=== PATIENT | male | born 1955 | race Caucasian/White ===

== ENCOUNTER 2021-04-06 17:31 | Emergency (ER) | payer OTHER ==
--- NOTE | 2021-04-06 18:37 | EDM.PDOC ---
ED HPI GENERAL MEDICAL PROBLEM - General Stated Complaint: RT GREAT TOE Time Seen by Provider: 04/06/21 18:28 Source of Information: Reports: Patient History Limitations: Reports: No Limitations - History of Present Illness INITIAL COMMENTS - FREE TEXT/NARRATIVE: Patient presents with right great toe pain. He had a partial toenail removal 10 days ago. THis was done at the [facility]. He had a ingrown toenail for about a month. He has been soaking it in Epsom salts but was not placed on antibiotics. He had increased pain about 4-5 days ago, expressed a large amount of exudate out of it and it was a bit better. He has not had fevers, has had covid vaccinations. Has not called the [facility] about this but can tomorrow - Related Data Allergies Allergy/AdvReac Type Severity Reaction Status Date / Time nicotine Allergy Cough Verified 09/05/17 17:04 Home Meds: Home Meds Sulfamethoxazole/Trimethoprim [Bactrim Ds Tablet] 1 each PO BID #14 tablet 04/06/21 [Rx] Past Medical History Cardiovascular History: Reports: Arrhythmia, Heart Failure, SOB on Exertion Respiratory History: Reports: COPD (should be on oxygen but declines) Musculoskeletal History: Reports: Osteoarthritis Other Musculoskeletal History: wrist surgeries. Neurological History: Reports: Migraines Hematologic History: Reports: Polycythemia - Infectious Disease History Infectious Disease History: Reports: Shingles - Past Surgical History HEENT Surgical History: Reports: Laser Surgery GI Surgical History: Reports: Appendectomy, Hernia Repair/Other Other GI Surgeries/Procedures: Inguinal hernia-repaired 1982 Musculoskeletal Surgical History: Reports: Arthroscopic Knee Social & Family History - Family History Family Medical History: No Pertinent Family History - Tobacco Use Tobacco Use Status *Q: Current Every Day Tobacco User - Caffeine Use Caffeine Use: Reports: Coffee - Recreational Drug Use Recreational Drug Use: No Drug Use in Last 12 Months: No ED ROS GENERAL - Review of Systems Review Of Systems: See Below Constitutional: Reports: No Symptoms. Denies: Fever, Chills, Malaise, Weakness, Fatigue HEENT: Reports: No Symptoms. Denies: Hearing Loss, Rhinitis, Sinus Problem, Throat Swelling Respiratory: Reports: Shortness of Breath (chronicaly), Cough (chronically) Cardiovascular: Reports: Dyspnea on Exertion (chronically) Endocrine: Reports: No Symptoms GI/Abdominal: Reports: No Symptoms Musculoskeletal: Reports: Joint Pain (right great toe) Skin: Reports: Erythema (and drainage from the rigth great toe) Neurological: Reports: No Symptoms Psychiatric: Reports: No Symptoms ED EXAM, GENERAL - Physical Exam Exam: See Below Exam Limited By: No Limitations General Appearance: Alert, WD/WN, No Apparent Distress Eye Exam: Bilateral Eye: EOMI, Normal Inspection, PERRL Nose: Normal Inspection Throat/Mouth: Normal Inspection, Normal Lips Head: Atraumatic Neck: Normal Inspection Respiratory/Chest: Decreased Breath Sounds (bases), Crackles (bases), Wheezing Cardiovascular: Regular Rate, Rhythm, Tachycardia GI/Abdominal: Normal Bowel Sounds (Male) Exam: No Hernia Extremities: Pedal Edema (rigth greater than left, 2+ piting to the knees ( chronic per the patient)) Neurological: Alert, Oriented, CN II-XII Intact Skin Exam: Other (right great toe with limited motion due to pain , erythema, partial toenail removal. No expressible drainage. ) Course - Vital Signs Last Recorded V/S: Last Vital Signs Temp 36.6 C 04/06/21 18:19 Pulse 102 H 04/06/21 18:19 Resp 17 04/06/21 18:19 BP 119/75 04/06/21 18:19 Pulse Ox 91 L 04/06/21 18:19 - Orders/Labs/Meds Orders: Active Orders 24 hr Category Date Time Status Toes Great Toe Rt T5 [CR] Stat Exams 04/06/21 18:37 Taken DME for Discharge [COMM] Stat Oth 04/06/21 19:42 Ordered Labs: Laboratory Tests 04/06/21 04/06/21 04/06/21 Range/Units 18:54 18:54 18:54 WBC 10.8 H (4.0-10.0) x10^3/uL RBC 5.40 (4.5-6.0) x10^6/uL Hgb 15.5 (14.0-18.0) g/dL Hct 48.9 (40.0-52.0) % MCV 90.6 (78.0-93.0) fL MCH 28.7 (26.0-32.0) pg MCHC 31.7 L (32.0-36.0) g/dL RDW Coeff of Ariana 12.6 (10.0-15.0) % Plt Count 307 (130-400) x10^3/uL Immature Gran % (Auto) 0.20 (0.00-0.43) % Neut % (Auto) 63.8 (50.0-80.0) % Lymph % (Auto) 23.2 L (25.0-50.0) % [place] % (Auto) 9.3 (2.0-11.0) % Eos % (Auto) 2.6 (0.0-4.0) % Baso % (Auto) 0.9 (0.2-1.2) % Neut # (Auto) 6.9 (1.8-7.7) x10^3/uL Lymph # (Auto) 2.5 (1.0-4.8) x10^3/uL [place] # (Auto) 1.0 H (0.0-0.8) x10^3/uL Eos # (Auto) 0.3 (0.0-0.5) x10^3/uL Baso # (Auto) 0.1 (0.0-0.2) x10^3/uL Immature Gran # (Auto) 0.02 (0.00-0.07) x10^3/uL Sodium 140 (136-145) mmol/L Potassium 4.0 (3.5-5.1) mmol/L Chloride 101 (98-107) mmol/L Carbon Dioxide 34 H (21-32) mmol/L Anion Gap 9.0 (5-15) mmol/L BUN 10 (7-18) mg/dL Creatinine 1.0 (0.70-1.30) mg/dL Est Cr Clr Drug Dosing TNP Estimated GFR (MDRD) > 60 Glucose 121 H (70-99) mg/dL Lactic Acid 1.9 (0.4-2.0) mmol/L Uric Acid 6.5 (3.5-7.2) mg/dL Calcium 8.6 (8.5-10.1) mg/dL Corrected Calcium 9.2 (8.5-10.1) mg/dL Total Bilirubin 0.2 (0.2-1.0) mg/dL AST 10 L (15-37) U/L ALT 15 L (16-63) U/L Alkaline Phosphatase 72 (46-116) U/L C-Reactive Protein < 0.2 (<=0.9) mg/dL Total Protein 6.8 (6.4-8.2) g/dL Albumin 3.2 L (3.4-5.0) g/dL Globulin 3.6 Albumin/Globulin Ratio 0.89 Meds: Medications Discontinued Medications Generic Name Dose Route Start Last Admin Trade Name Moisesq PRN Reason Stop Dose Admin Hydrocodone Bitart/Acetaminophen 1 tab 04/06/21 18:38 04/06/21 19:00 Acetaminophen/Hydrocodone 325-5 Mg Tab PO 04/06/21 18:39 1 tab ONETIME ONE Administration Trimethoprim/Sulfamethoxazole 1 tab 04/06/21 19:41 Sulfamethoxazole/Trimethoprim 800-160 Mg Tab PO 04/06/21 19:42 ONETIME ONE - Radiology Interpretation Free Text/Narrative:: toe x-ray without any evidence of osteomyelitis, interpreted by radiologist - Re-Assessments/Exams Free Text/Narrative Re-Assessment/Exam: 04/06/21 19:10 will give a hydrocodone. check labs, x-ray will need antibiotics and close follow up 04/06/21 19:58 given bactrim po and a post op shoe. Declined IM injection and pain medication, Will get script for pain medication [facility] - Departure Time of Disposition: 19:43 Disposition: Home, Self-Care 01 Condition: Good Clinical Impression: Cellulitis of toe of right foot - Discharge Information *PRESCRIPTION DRUG MONITORING PROGRAM REVIEWED*: Not Applicable *COPY OF PRESCRIPTION DRUG MONITORING REPORT IN PATIENT OMER: Not Applicable Prescriptions: Sulfamethoxazole/Trimethoprim [Bactrim Ds Tablet] 1 each PO BID #14 tablet Instructions: Cellulitis, Adult, [id number] Referrals: Velasquez Gonzalez MD [Primary Care Provider] - Additional Instructions: continue to soak the toe twice daily. you were given a dose of antibiotics in the ED. start oral antibiotics tomorrow. [facility] and follow up tomorrow Sepsis Event Note (ED) - Focused Exam Vital Signs: Vital Signs Temp Pulse Resp BP Pulse Ox 04/06/21 18:19 36.6 C 102 H 17 119/75 91 L - My Orders Last 24 Hours: My Active Orders 04/06/21 18:37 Toes Great Toe Rt T5 [CR] Stat 04/06/21 19:42 DME for Discharge [COMM] Stat - Assessment/Plan Last 24 Hours: My Active Orders 04/06/21 18:37 Toes Great Toe Rt T5 [CR] Stat 04/06/21 19:42 DME for Discharge [COMM] Stat
[2021-04-06] MEDS ORDERED: Acetaminophen/HYDROcodone 325-5 MG Tab PO ONE (18:38)
[2021-04-06 19:26] LABS: CHLORIDE,CL 101 mmol/L (98-107); SODIUM,NA 140 mmol/L (136-145)
[2021-04-06] MEDS ORDERED: Sulfamethoxazole/Trimethoprim 800-160 MG Tab PO ONE (19:41)
[2021-04-06 19:53] VITALS: BP 119/75; PULSE 102
--- NOTE | 2021-04-07 08:54 | CR ---
[id number] RAD/RAD Toes Right EXAM: RAD Toes Right CLINICAL DATA: PAIN AND ERYTHEMA COMPARISON: No previous similar exam is available. FINDINGS: There is no air in the soft tissues There are no destructive changes There is no fracture or dislocation There are degenerative changes. IMPRESSION: NO PLAIN FILM EVIDENCE OF OSTEOMYELITIS Urban Alvarado MD 04/07/21 0853 Thank you for allowing us to participate in the care of your patient.
== END 2021-04-06 19:55 | disposition home or self-care (01) ==
LOC: VM.ED 17:31
DX: L03.031 Cellulitis of right toe (principal); J44.9 Chronic obstructive pulmonary disease, unspecified; I50.9 Heart failure, unspecified; Z88.1 Allergy status to other antibiotic agents; Z72.0 Tobacco use
CPT/HCPCS: 36415; 73660-T5; 80053; 83605; 84550; 85025; 86140; 99283; 99283-25; A9270-GY

== ENCOUNTER 2021-06-01 17:11 | Emergency (ER) | payer OTHER ==
[2021-06-01] MEDS ORDERED: Sodium Chloride 0.9% 10 ML Syringe FLUSH PRN (17:26)
[2021-06-01] MEDS ORDERED: GI Cocktail Oral Solution 30 ML PO ONE (17:27)
[2021-06-01] MEDS ORDERED: Morphine 2 MG/ML SYRINGE IVPUSH ONE (17:27)
[2021-06-01] MEDS ORDERED: Aspirin 81 MG Tab.Chew PO ONE (17:27)
[2021-06-01] MEDS ORDERED: Ondansetron 4 MG/2 ML SDV IVPUSH ONE (17:28)
--- NOTE | 2021-06-01 17:33 | EDM.PDOC ---
ED HPI GENERAL MEDICAL PROBLEM - General Stated Complaint: ER Time Seen by Provider: 06/01/21 17:25 Source of Information: Reports: Patient - History of Present Illness INITIAL COMMENTS - FREE TEXT/NARRATIVE: Abe is a 65 y/o male who presents to the ER with chest pain. He reports having midsternal/epigastric pain for the last 4 days. He thought it was indigestion and he was trying to ignore it. Today after he had went to the bar and had 1 beer and 3 shots of whiskey, he got home and sat down at his computer and he felt his heart palpate in his chest and he figured he better come to the ER. He rates the pain 3/10 and constant. Denies previous ME. He does have CHF and takes a fluid pill. Also long tie history of COPD and oxygen dependence, but he does not wear his oxygen when he leaves home and so he has had it off a good portion of this afternoon when he was at the bar. [facility] is his PCP. He has had the COVID vaccine. - Related Data Allergies Allergy/AdvReac Type Severity Reaction Status Date / Time nicotine Allergy Cough Verified 09/05/17 17:04 Home Meds: Home Meds Sulfamethoxazole/Trimethoprim [Bactrim Ds Tablet] 1 each PO BID #14 tablet 04/06/21 [Rx] Past Medical History Cardiovascular History: Reports: Arrhythmia, Heart Failure, SOB on Exertion Respiratory History: Reports: COPD (should be on oxygen but declines) Musculoskeletal History: Reports: Osteoarthritis Other Musculoskeletal History: wrist surgeries. Neurological History: Reports: Migraines Hematologic History: Reports: Polycythemia - Infectious Disease History Infectious Disease History: Reports: Shingles - Past Surgical History HEENT Surgical History: Reports: Laser Surgery GI Surgical History: Reports: Appendectomy, Hernia Repair/Other Other GI Surgeries/Procedures: Inguinal hernia-repaired 1982 Musculoskeletal Surgical History: Reports: Arthroscopic Knee Social & Family History - Family History Family Medical History: No Pertinent Family History - Caffeine Use Caffeine Use: Reports: Coffee Review of Systems - Review of Systems Review Of Systems: See Below Constitutional: Reports: No Symptoms Eyes: Reports: No Symptoms Ears: Reports: No Symptoms Nose: Reports: No Symptoms Mouth/Throat: Reports: No Symptoms Respiratory: Reports: Shortness of Breath, Cough Cardiovascular: Reports: Chest Pain, Edema, Palpitations GI/Abdominal: Reports: No Symptoms Genitourinary: Reports: No Symptoms Musculoskeletal: Reports: No Symptoms Skin: Reports: No Symptoms Neurological: Reports: No Symptoms Psychiatric: Reports: No Symptoms ED EXAM, GENERAL - Physical Exam Exam: See Below General Appearance: Alert, WD/WN, No Apparent Distress (Elderly male, cooperative and able to walk into the ER and get into a gown.) Ears: Hearing Grossly Normal Nose: Normal Inspection, Normal Mucosa Throat/Mouth: Normal Inspection, Normal Lips, Normal Voice Head: Atraumatic, Normocephalic Neck: Supple Respiratory/Chest: No Respiratory Distress, Decreased Breath Sounds, Crackles (scattered, but very diminished) Cardiovascular: Regular Rate, Rhythm, No Murmur, Other (3+ pitting edema to bi lateral lower legs) GI/Abdominal: Normal Bowel Sounds, Soft, Non-Tender (Male) Exam: Deferred Rectal (Males) Exam: Deferred Extremities: Pedal Edema (See above) Neurological: Alert, Oriented, CN II-XII Intact, Normal Cognition, Normal Gait, No Motor/Sensory Deficits Psychiatric: Normal Affect, Normal Mood Skin Exam: Warm, Dry, Intact, Normal Color, No Rash Lymphatic: No Adenopathy #1 Interpretation EKG Date: 06/01/21 Time: 17:22 Rhythm: NSR Rate (Beats/Min): 97 [place]: Normal P-Wave: Present QRS: Normal ST-T: Normal QT: Normal EKG Interpretation Comments: Sinus Rhythm Course - Vital Signs Text/Narrative:: 172 The patient was seen by the [employer]. Labs, EKG, and CXR ordered. ASA given. He was also given a GI cocktail to rule out GERD. Considered Nitro, but BP low, Morphine 1mg IVP ordered, but he declined. 1820 Reports pain 2/10. Labs reviewed. EKG=NSR and Troponin negative, doubt cardiac etiology. Feeling better since GI Cocktail. BNP 142. ETOH=48, Lactic Acid=2.6, suspect ETOH related due to negative CBC and no febrile. 184 Patient feeling better now. Will discharge to home. [facility]. He was given written instructions and left the ER in stable condition. - Orders/Labs/Meds Orders: Active Orders 24 hr Category Date Time Status EKG Documentation Completion [RC] STAT Care 06/01/21 17:26 Active REFLEX LACTIC ACID YES OR NO [CHEM] Routine Lab 06/01/21 18:17 Received Sodium Chloride 0.9% [Saline Flush] Med 06/01/21 17:26 Active 10 ml FLUSH ASDIRECTED PRN Saline Lock Insert [OM.PC] Stat Oth 06/01/21 17:26 Ordered Medication Orders Sodium Chloride (Sodium Chloride 0.9% 10 Ml Syringe) 10 ml FLUSH ASDIRECTED PRN PRN Reason: Keep Vein Open Labs: Laboratory Tests 06/01/21 06/01/21 06/01/21 Range/Units 17:30 17:30 17:30 WBC 10.0 (4.0-10.0) x10^3/uL RBC 6.17 H (4.5-6.0) x10^6/uL Hgb 16.7 (14.0-18.0) g/dL Hct 52.2 H (40.0-52.0) % MCV 84.6 D (78.0-93.0) fL MCH 27.1 (26.0-32.0) pg MCHC 32.0 (32.0-36.0) g/dL RDW Coeff of Ariana 14.6 (10.0-15.0) % Plt Count 275 (130-400) x10^3/uL Immature Gran % (Auto) 0.10 (0.00-0.43) % Neut % (Auto) 61.7 (50.0-80.0) % Lymph % (Auto) 23.9 L (25.0-50.0) % [place] % (Auto) 11.0 (2.0-11.0) % Eos % (Auto) 2.5 (0.0-4.0) % Baso % (Auto) 0.8 (0.2-1.2) % Neut # (Auto) 6.1 (1.8-7.7) x10^3/uL Lymph # (Auto) 2.4 (1.0-4.8) x10^3/uL [place] # (Auto) 1.1 H (0.0-0.8) x10^3/uL Eos # (Auto) 0.3 (0.0-0.5) x10^3/uL Baso # (Auto) 0.1 (0.0-0.2) x10^3/uL Immature Gran # (Auto) 0.01 (0.00-0.07) x10^3/uL PT 10.7 (9.9-12.5) SEC INR 1.0 L (2.0-3.5) APTT 26.1 (25.6-32.8) SEC POC ABG pH (7.35-7.45) pH POC ABG pCO2 (35-48) mmHg POC ABG pO2 (83-108) mmHg POC ABG HCO3 (21-28) mmol/L POC ABG Total CO2 (22-29) mmol/L POC ABG O2 Sat (94-98) % POC ABG Base Excess ((-2)-3) mmol/L POC FiO2 Sodium 141 (136-145) mmol/L Potassium 3.8 (3.5-5.1) mmol/L Chloride 101 (98-107) mmol/L Carbon Dioxide 33 H (21-32) mmol/L Anion Gap 10.8 (5-15) mmol/L BUN 13 (7-18) mg/dL Creatinine 0.9 (0.70-1.30) mg/dL Est Cr Clr Drug Dosing TNP Estimated GFR (MDRD) > 60 Glucose 124 H (70-99) mg/dL Lactic Acid (0.4-2.0) mmol/L Calcium 8.6 (8.5-10.1) mg/dL Corrected Calcium 9.2 (8.5-10.1) mg/dL Magnesium 1.8 (1.8-2.4) mg/dL Total Bilirubin 0.3 (0.2-1.0) mg/dL AST 10 L (15-37) U/L ALT 19 (16-63) U/L Alkaline Phosphatase 68 (46-116) U/L Troponin I High Sens 29 (<=76) ng/L NT-Pro-B Natriuret Pep 142 H (<=125) pg/mL Total Protein 6.7 (6.4-8.2) g/dL Albumin 3.3 L (3.4-5.0) g/dL Globulin 3.4 Albumin/Globulin Ratio 0.97 Amylase 21 L (25-115) U/L Lipase 79 (73-393) U/L Urine Color (YELLOW) Urine Appearance (CLEAR) Urine pH (5.0-8.0) Ur Specific [place] Urine Protein (NEGATIVE) mg/dL Urine Glucose (UA) (NEGATIVE) mg/dL Urine Ketones (NEGATIVE) mg/dL Urine Occult Blood (NEGATIVE) Urine Nitrite (NEGATIVE) Urine Bilirubin (NEGATIVE) Urine Urobilinogen (0.2) EU/dL Ur Leukocyte Esterase (NEGATIVE) Ethyl Alcohol 48 H (0-3) mg/dL SARS CoV-2 RNA Rapid ZI (NEGATIVE) 06/01/21 06/01/21 06/01/21 Range/Units 17:30 17:58 18:15 WBC (4.0-10.0) x10^3/uL RBC (4.5-6.0) x10^6/uL Hgb (14.0-18.0) g/dL Hct (40.0-52.0) % MCV (78.0-93.0) fL MCH (26.0-32.0) pg MCHC (32.0-36.0) g/dL RDW Coeff of Ariana (10.0-15.0) % Plt Count (130-400) x10^3/uL Immature Gran % (Auto) (0.00-0.43) % Neut % (Auto) (50.0-80.0) % Lymph % (Auto) (25.0-50.0) % [place] % (Auto) (2.0-11.0) % Eos % (Auto) (0.0-4.0) % Baso % (Auto) (0.2-1.2) % Neut # (Auto) (1.8-7.7) x10^3/uL Lymph # (Auto) (1.0-4.8) x10^3/uL [place] # (Auto) (0.0-0.8) x10^3/uL Eos # (Auto) (0.0-0.5) x10^3/uL Baso # (Auto) (0.0-0.2) x10^3/uL Immature Gran # (Auto) (0.00-0.07) x10^3/uL PT (9.9-12.5) SEC INR (2.0-3.5) APTT (25.6-32.8) SEC POC ABG pH 7.37 (7.35-7.45) pH POC ABG pCO2 50 H (35-48) mmHg POC ABG pO2 71 L (83-108) mmHg POC ABG HCO3 29.3 H (21-28) mmol/L POC ABG Total CO2 29.6 H (22-29) mmol/L POC ABG O2 Sat 93.3 L (94-98) % POC ABG Base Excess 4 H ((-2)-3) mmol/L POC FiO2 28 Sodium (136-145) mmol/L Potassium (3.5-5.1) mmol/L Chloride (98-107) mmol/L Carbon Dioxide (21-32) mmol/L Anion Gap (5-15) mmol/L BUN (7-18) mg/dL Creatinine (0.70-1.30) mg/dL Est Cr Clr Drug Dosing Estimated GFR (MDRD) Glucose (70-99) mg/dL Lactic Acid 2.6 H* (0.4-2.0) mmol/L Calcium (8.5-10.1) mg/dL Corrected Calcium (8.5-10.1) mg/dL Magnesium (1.8-2.4) mg/dL Total Bilirubin (0.2-1.0) mg/dL AST (15-37) U/L ALT (16-63) U/L Alkaline Phosphatase (46-116) U/L Troponin I High Sens (<=76) ng/L NT-Pro-B Natriuret Pep (<=125) pg/mL Total Protein (6.4-8.2) g/dL Albumin (3.4-5.0) g/dL Globulin Albumin/Globulin Ratio Amylase (25-115) U/L Lipase (73-393) U/L Urine Color (YELLOW) Urine Appearance (CLEAR) Urine pH (5.0-8.0) Ur Specific [place] Urine Protein (NEGATIVE) mg/dL Urine Glucose (UA) (NEGATIVE) mg/dL Urine Ketones (NEGATIVE) mg/dL Urine Occult Blood (NEGATIVE) Urine Nitrite (NEGATIVE) Urine Bilirubin (NEGATIVE) Urine Urobilinogen (0.2) EU/dL Ur Leukocyte Esterase (NEGATIVE) Ethyl Alcohol (0-3) mg/dL SARS CoV-2 RNA Rapid ZI Negative (NEGATIVE) 06/01/21 Range/Units 18:23 WBC (4.0-10.0) x10^3/uL RBC (4.5-6.0) x10^6/uL Hgb (14.0-18.0) g/dL Hct (40.0-52.0) % MCV (78.0-93.0) fL MCH (26.0-32.0) pg MCHC (32.0-36.0) g/dL RDW Coeff of Ariana (10.0-15.0) % Plt Count (130-400) x10^3/uL Immature Gran % (Auto) (0.00-0.43) % Neut % (Auto) (50.0-80.0) % Lymph % (Auto) (25.0-50.0) % [place] % (Auto) (2.0-11.0) % Eos % (Auto) (0.0-4.0) % Baso % (Auto) (0.2-1.2) % Neut # (Auto) (1.8-7.7) x10^3/uL Lymph # (Auto) (1.0-4.8) x10^3/uL [place] # (Auto) (0.0-0.8) x10^3/uL Eos # (Auto) (0.0-0.5) x10^3/uL Baso # (Auto) (0.0-0.2) x10^3/uL Immature Gran # (Auto) (0.00-0.07) x10^3/uL PT (9.9-12.5) SEC INR (2.0-3.5) APTT (25.6-32.8) SEC POC ABG pH (7.35-7.45) pH POC ABG pCO2 (35-48) mmHg POC ABG pO2 (83-108) mmHg POC ABG HCO3 (21-28) mmol/L POC ABG Total CO2 (22-29) mmol/L POC ABG O2 Sat (94-98) % POC ABG Base Excess ((-2)-3) mmol/L POC FiO2 Sodium (136-145) mmol/L Potassium (3.5-5.1) mmol/L Chloride (98-107) mmol/L Carbon Dioxide (21-32) mmol/L Anion Gap (5-15) mmol/L BUN (7-18) mg/dL Creatinine (0.70-1.30) mg/dL Est Cr Clr Drug Dosing Estimated GFR (MDRD) Glucose (70-99) mg/dL Lactic Acid (0.4-2.0) mmol/L Calcium (8.5-10.1) mg/dL Corrected Calcium (8.5-10.1) mg/dL Magnesium (1.8-2.4) mg/dL Total Bilirubin (0.2-1.0) mg/dL AST (15-37) U/L ALT (16-63) U/L Alkaline Phosphatase (46-116) U/L Troponin I High Sens (<=76) ng/L NT-Pro-B Natriuret Pep (<=125) pg/mL Total Protein (6.4-8.2) g/dL Albumin (3.4-5.0) g/dL Globulin Albumin/Globulin Ratio Amylase (25-115) U/L Lipase (73-393) U/L Urine Color Yellow (YELLOW) Urine Appearance Clear (CLEAR) Urine pH 5.5 (5.0-8.0) Ur Specific [place] 1.010 Urine Protein Negative (NEGATIVE) mg/dL Urine Glucose (UA) Negative (NEGATIVE) mg/dL Urine Ketones Negative (NEGATIVE) mg/dL Urine Occult Blood Negative (NEGATIVE) Urine Nitrite Negative (NEGATIVE) Urine Bilirubin Negative (NEGATIVE) Urine Urobilinogen 0.2 (0.2) EU/dL Ur Leukocyte Esterase Negative (NEGATIVE) Ethyl Alcohol (0-3) mg/dL SARS CoV-2 RNA Rapid ZI (NEGATIVE) Meds: Medications Generic Name Dose Route Start Last Admin Trade Name Freq PRN Reason Stop Dose Admin Sodium Chloride 10 ml 06/01/21 17:26 Sodium Chloride 0.9% 10 Ml Syringe FLUSH ASDIRECTED PRN Keep Vein Open Discontinued Medications Generic Name Dose Route Start Last Admin Trade Name Freq PRN Reason Stop Dose Admin Al Hydroxide/Mg Hydroxide 30 ml 06/01/21 17:27 06/01/21 17:45 Gi Cocktail Oral Solution 30 Ml PO 06/01/21 17:28 30 ml ONETIME ONE Administration Aspirin 324 mg 06/01/21 17:27 06/01/21 17:44 Aspirin 81 Mg Tab.Chew PO 06/01/21 17:28 324 mg ONETIME ONE Administration Morphine Sulfate 1 mg 06/01/21 17:27 Morphine 2 Mg/Ml Syringe IVPUSH 06/01/21 17:28 ONETIME ONE Ondansetron HCl 4 mg 06/01/21 17:28 Ondansetron 4 Mg/2 Ml Sdv IVPUSH 06/01/21 17:29 ONETIME ONE - Radiology Interpretation Free Text/Narrative:: XR Chest 1V=negative (See final report) Departure - Departure Time of Disposition: 18:53 Disposition: Home, Self-Care 01 Condition: Good Clinical Impression: Alcohol use Chest pain Qualifiers: Chest pain type: unspecified Qualified Code(s): R07.9 - Chest pain, unspecified COPD (chronic obstructive pulmonary disease) Qualifiers: COPD type: unspecified COPD Qualified Code(s): J44.9 - Chronic obstructive pulmonary disease, unspecified - Discharge Information Instructions: Nonspecific Chest Pain, Adult Additional Instructions: -Resume meds -Wear your oxygen as directed -[facility] or any other concerns -Return to the ER as needed - Problem List & Annotations (1) Chest pain SNOMED Code(s): 85690407 Code(s): R07.9 - CHEST PAIN, UNSPECIFIED Status: Acute Current Visit: Yes Annotation/Comment:: Trponin negative. Better following GI Cocktail. EKG negative. Qualifiers: Chest pain type: unspecified Qualified Code(s): R07.9 - Chest pain, unspecified (2) Alcohol use SNOMED Code(s): 422894 Code(s): Z72.89 - OTHER PROBLEMS RELATED TO LIFESTYLE Status: Acute Current Visit: Yes Annotation/Comment:: ETOH=48, chornic user. Suspect Lactic Acid elevated from ETOH use. (3) COPD (chronic obstructive pulmonary disease) SNOMED Code(s): 06547036 Code(s): J44.9 - CHRONIC OBSTRUCTIVE PULMONARY DISEASE, UNSPECIFIED Status: Acute Current Visit: Yes Annotation/Comment:: Continue home oxygen Qualifiers: COPD type: unspecified COPD Qualified Code(s): J44.9 - Chronic obstructive pulmonary disease, unspecified - Problem List Review Problem List Initiated/Reviewed/Updated: Yes - My Orders Last 24 Hours: My Active Orders 06/01/21 17:26 EKG Documentation Completion [RC] STAT Sodium Chloride 0.9% [Saline Flush] 10 ml FLUSH ASDIRECTED PRN Saline Lock Insert [OM.PC] Stat 06/01/21 18:17 REFLEX LACTIC ACID YES OR NO [CHEM] Routine - Assessment/Plan Last 24 Hours: My Active Orders 06/01/21 17:26 EKG Documentation Completion [RC] STAT Sodium Chloride 0.9% [Saline Flush] 10 ml FLUSH ASDIRECTED PRN Saline Lock Insert [OM.PC] Stat 06/01/21 18:17 REFLEX LACTIC ACID YES OR NO [CHEM] Routine Plan: See above
[2021-06-01 18:05] LABS: PCO2 ARTERIAL,POC 50 mmHg (35-48)
[2021-06-01 18:13] LABS: PTT,PARTIAL THROMBOPLSTIN TIME 26.1 SEC (25.6-32.8)
[2021-06-01 18:18] LABS: CHLORIDE,CL 101 mmol/L (98-107); SODIUM,NA 141 mmol/L (136-145)
[2021-06-01 18:19] LABS: ANION GAP 10.8 mmol/L (5-15)
--- NOTE | 2021-06-01 18:40 | CR ---
[id number] RAD/RAD Chest PA or AP 1V EXAM: RAD Chest PA or AP 1V INDICATION: CHEST PAIN. HYPOXIA. COMPARISON: None. DISCUSSION: Cardiomediastinal silhouette is normal in size and contour. No infiltrate, effusion, pneumothorax, or edema. Left basilar subsegmental atelectasis and/or scarring. IMPRESSION: No acute cardiopulmonary abnormality. Sekou Pollock DO 06/01/21 6231 Thank you for allowing us to participate in the care of your patient.
[2021-06-01 21:17] VITALS: BP 117/69; PULSE 93
== END 2021-06-01 19:15 | disposition home or self-care (01) ==
LOC: VM.ED 17:11
DX: J44.9 Chronic obstructive pulmonary disease, unspecified (principal); F10.10 Alcohol abuse, uncomplicated; Z88.8 Allergy status to other drugs, medicaments and biological substances; Z20.822 Contact with and (suspected) exposure to COVID-19
CPT/HCPCS: 36600; 71045; 80053; 80307; 81003; 82150; 82803; 83605; 83690; 83735; 83880; 84484; 85025; 85610; 85730; 93005; 93010; 99284; 99285-25; A9270-GY; U0002

== ENCOUNTER 2021-07-14 18:38 | Emergency (ER) | payer OTHER ==
[2021-07-14] MEDS ORDERED: Sodium Chloride 0.9% 10 ML Syringe FLUSH PRN ×2 (18:48→19:00)
[2021-07-14] MEDS ORDERED: Aspirin 81 MG Tab.Chew PO ONE (18:52)
--- NOTE | 2021-07-14 19:00 | EDM.PDOC ---
ED HPI GENERAL MEDICAL PROBLEM - General Stated Complaint: CHEST PAIN Time Seen by Provider: 07/14/21 18:40 Source of Information: Reports: Patient History Limitations: Reports: No Limitations - History of Present Illness INITIAL COMMENTS - FREE TEXT/NARRATIVE: Pt. presents to ER with complaints of chest pain for a week. He states that he came in tonight because it is not getting better. Pt. states that he has a history of CHF and COPD. He states that he has never had an NC. He smokes and is on O2 at home. On arrival to ER his O2 sat was 70% on room air. He states that he is on numerous medications but is unable to name them. [facility] He states that he has inhalers but usually forgets to take them. He states that he has been experiencing significant peripheral edema, but has been for months. He states that he is on a "water pill" but is not sure which one. Pt. states that he has a chronic cough, not worse than normal. He states that it is productive which is normal for him. He denies any fever or chills. No nausea, vomiting or diarrhea. He states that he has had the [employer] vaccine for covid as well as a booster. Medical record synopsis was obtained from [facility]. Pt. has a history secondary polycythemia for which he receives theraputic phlebotomy, COPD (on albuterol inhaler and Advair 250/50, and tiotropium 2.5mcg/act), CHF (for which he takes lasix 40mg QAM and metoprolol succinate 50mg once daily). Onset Date: 07/07/21 Location: Reports: Chest, Generalized Associated Symptoms: Reports: Chest Pain, Cough, cough w sputum, Shortness of Breath. Denies: Diaphoresis, Fever/Chills, Malaise, Nausea/Vomiting, Seizure, Syncope, Weakness Treatments [employer]: Reports: Breathing Treatments Middle Chest Pain Score (Numeric/FACES): 6 - Related Data Allergies Allergy/AdvReac Type Severity Reaction Status Date / Time nicotine Allergy Cough Verified 07/14/21 19:29 Home Meds: Home Meds . [Unable to Verify Home Med List] 06/01/21 [History] Past Medical History Cardiovascular History: Reports: Arrhythmia, Heart Failure, SOB on Exertion Respiratory History: Reports: COPD Musculoskeletal History: Reports: Osteoarthritis Other Musculoskeletal History: wrist surgeries. Neurological History: Reports: Migraines Hematologic History: Reports: Polycythemia - Infectious Disease History Infectious Disease History: Reports: Shingles - Past Surgical History HEENT Surgical History: Reports: Laser Surgery GI Surgical History: Reports: Appendectomy, Hernia Repair/Other Other GI Surgeries/Procedures: Inguinal hernia-repaired 1982 Musculoskeletal Surgical History: Reports: Arthroscopic Knee Social & Family History - Family History Family Medical History: No Pertinent Family History - Caffeine Use Caffeine Use: Reports: Coffee ED ROS GENERAL - Review of Systems Review Of Systems: See Below Constitutional: Reports: No Symptoms HEENT: Reports: No Symptoms Respiratory: Reports: Shortness of Breath, Cough Cardiovascular: Reports: Chest Pain, Dyspnea on Exertion, Edema Endocrine: Reports: No Symptoms GI/Abdominal: Reports: No Symptoms : Reports: No Symptoms Musculoskeletal: Reports: No Symptoms Skin: Reports: No Symptoms Neurological: Reports: No Symptoms Psychiatric: Reports: No Symptoms Hematologic/Lymphatic: Reports: No Symptoms Immunologic: Reports: No Symptoms ED EXAM, GENERAL - Physical Exam Exam: See Below Exam Limited By: No Limitations General Appearance: Alert, WD/WN Throat/Mouth: Normal Oropharynx, No Airway Compromise Head: Atraumatic, Normocephalic Respiratory/Chest: Decreased Breath Sounds, Wheezing Cardiovascular: Regular Rate, Rhythm, No JVD, Other (2-3+ edema) Peripheral Pulses: 4+: Radial (L) GI/Abdominal: Soft, Non-Tender, No Distention, No Mass (Male) Exam: Deferred Rectal (Males) Exam: Deferred Back Exam: Normal Inspection, Full Range of Motion Extremities: Normal Inspection, Normal Range of Motion, Non-Tender, Other (Rubor, edema to lower legs. Pt. states that this is a chronic problem for him.) Neurological: Alert, Oriented, CN II-XII Intact, Normal Cognition, Normal Reflexes, No Motor/Sensory Deficits Psychiatric: Normal Affect, Normal Mood Skin Exam: Warm, Dry, Intact, Normal Color, No Rash Lymphatic: No Adenopathy #1 Interpretation Rhythm: NSR QT: Prolonged Course - Vital Signs Last Recorded V/S: Last Vital Signs Temp 36.8 C 07/14/21 18:40 Pulse 102 H 07/14/21 18:40 Resp 34 H 07/14/21 18:40 BP 100/60 07/14/21 18:40 Pulse Ox 70 L 07/14/21 18:40 - Orders/Labs/Meds Orders: Active Orders 24 hr Category Date Time Status RT Aerosol Therapy [RC] ASDIRECTED Care 07/14/21 20:20 Active CULTURE BLOOD [BC] Stat Lab 07/14/21 19:00 Received CULTURE BLOOD [BC] Stat Lab 07/14/21 19:04 Received REFLEX LACTIC ACID YES OR NO [CHEM] Routine Lab 07/14/21 19:37 Received Azithromycin [Zithromax] 500 mg Med 07/14/21 20:26 Active Sodium Chloride 0.9% [Normal Saline AdvBag] 250 ml IV STAT Sodium Chloride 0.9% [Saline Flush] Med 07/14/21 18:48 Active 10 ml FLUSH ASDIRECTED PRN Sodium Chloride 0.9% [Saline Flush] Med 07/14/21 19:00 Active 10 ml FLUSH ASDIRECTED PRN Blood Culture x2 Reflex Set [OM.PC] Stat Oth 07/14/21 18:49 Ordered Peripheral IV Insertion Adult [OM.PC] Routine Oth 07/14/21 18:48 Ordered Peripheral IV Insertion Adult [OM.PC] Routine Oth 07/14/21 19:00 Ordered Medication Orders Azithromycin 500 mg/ Sodium (Chloride) 250 mls @ 250 mls/hr IV STAT ONE Stop: 07/14/21 21:25 Last Admin: 07/14/21 20:39 Dose: 250 mls/hr Documented by: BATACAR Sodium Chloride (Sodium Chloride 0.9% 10 Ml Syringe) 10 ml FLUSH ASDIRECTED PRN PRN Reason: Keep Vein Open Last Admin: 07/14/21 20:20 Dose: 10 ml Documented by: BATACAR Sodium Chloride (Sodium Chloride 0.9% 10 Ml Syringe) 10 ml FLUSH ASDIRECTED PRN PRN Reason: Keep Vein Open Labs: Laboratory Tests 07/14/21 07/14/21 07/14/21 Range/Units 19:00 19:00 19:00 WBC 10.3 H (4.0-10.0) x10^3/uL RBC 6.19 H (4.5-6.0) x10^6/uL Hgb 15.5 (14.0-18.0) g/dL Hct 51.9 (40.0-52.0) % MCV 83.8 (78.0-93.0) fL MCH 25.0 L (26.0-32.0) pg MCHC 29.9 L (32.0-36.0) g/dL RDW Coeff of Ariana 15.9 H (10.0-15.0) % Plt Count 258 (130-400) x10^3/uL Immature Gran % (Auto) 0.20 (0.00-0.43) % Neut % (Auto) 73.2 (50.0-80.0) % Lymph % (Auto) 14.6 L (25.0-50.0) % [place] % (Auto) 8.6 (2.0-11.0) % Eos % (Auto) 2.3 (0.0-4.0) % Baso % (Auto) 1.1 (0.2-1.2) % Neut # (Auto) 7.5 (1.8-7.7) x10^3/uL Lymph # (Auto) 1.5 (1.0-4.8) x10^3/uL [place] # (Auto) 0.9 H (0.0-0.8) x10^3/uL Eos # (Auto) 0.2 (0.0-0.5) x10^3/uL Baso # (Auto) 0.1 (0.0-0.2) x10^3/uL Immature Gran # (Auto) 0.02 (0.00-0.07) x10^3/uL PT 11.3 (9.9-12.5) SEC INR 1.0 L (2.0-3.5) APTT (25.6-32.8) SEC D-Dimer, Quantitative 0.47 (<=0.58) mg/LFEU POC ABG pH (7.35-7.45) pH POC ABG pCO2 (35-48) mmHg POC ABG pO2 (83-108) mmHg POC ABG HCO3 (21-28) mmol/L POC ABG Total CO2 (22-29) mmol/L POC ABG O2 Sat (94-98) % POC ABG Base Excess ((-2)-3) mmol/L POC FiO2 POC Blood Gas Comment Sodium 144 (136-145) mmol/L Potassium 4.0 (3.5-5.1) mmol/L Chloride 100 (98-107) mmol/L Carbon Dioxide 41 H (21-32) mmol/L Anion Gap 7.0 (5-15) mmol/L BUN 15 (7-18) mg/dL Creatinine 1.0 (0.70-1.30) mg/dL Est Cr Clr Drug Dosing TNP Estimated GFR (MDRD) > 60 Glucose 125 H (70-99) mg/dL Lactic Acid (0.4-2.0) mmol/L Calcium 8.5 (8.5-10.1) mg/dL Corrected Calcium 9.1 (8.5-10.1) mg/dL Phosphorus 4.6 (2.6-4.7) mg/dL Magnesium 2.0 (1.8-2.4) mg/dL Total Bilirubin 0.5 (0.2-1.0) mg/dL AST 21 (15-37) U/L ALT 31 (16-63) U/L Alkaline Phosphatase 67 (46-116) U/L Troponin I High Sens 21 (<=76) ng/L C-Reactive Protein < 0.2 (<=0.9) mg/dL NT-Pro-B Natriuret Pep 939 H (<=125) pg/mL Total Protein 7.1 (6.4-8.2) g/dL Albumin 3.2 L (3.4-5.0) g/dL Globulin 3.9 Albumin/Globulin Ratio 0.82 Ethyl Alcohol 6 H (0-3) mg/dL Influenza Type A RNA (NEGATIVE) RSV RNA (INAAT) (NEGATIVE) Influenza Type B RNA (NEGATIVE) SARS-CoV-2 RNA (ZI) (NEGATIVE) 07/14/21 07/14/21 07/14/21 Range/Units 19:00 19:00 19:10 WBC (4.0-10.0) x10^3/uL RBC (4.5-6.0) x10^6/uL Hgb (14.0-18.0) g/dL Hct (40.0-52.0) % MCV (78.0-93.0) fL MCH (26.0-32.0) pg MCHC (32.0-36.0) g/dL RDW Coeff of Ariana (10.0-15.0) % Plt Count (130-400) x10^3/uL Immature Gran % (Auto) (0.00-0.43) % Neut % (Auto) (50.0-80.0) % Lymph % (Auto) (25.0-50.0) % [place] % (Auto) (2.0-11.0) % Eos % (Auto) (0.0-4.0) % Baso % (Auto) (0.2-1.2) % Neut # (Auto) (1.8-7.7) x10^3/uL Lymph # (Auto) (1.0-4.8) x10^3/uL [place] # (Auto) (0.0-0.8) x10^3/uL Eos # (Auto) (0.0-0.5) x10^3/uL Baso # (Auto) (0.0-0.2) x10^3/uL Immature Gran # (Auto) (0.00-0.07) x10^3/uL PT (9.9-12.5) SEC INR (2.0-3.5) APTT 26.1 (25.6-32.8) SEC D-Dimer, Quantitative (<=0.58) mg/LFEU POC ABG pH (7.35-7.45) pH POC ABG pCO2 (35-48) mmHg POC ABG pO2 (83-108) mmHg POC ABG HCO3 (21-28) mmol/L POC ABG Total CO2 (22-29) mmol/L POC ABG O2 Sat (94-98) % POC ABG Base Excess ((-2)-3) mmol/L POC FiO2 POC Blood Gas Comment Sodium (136-145) mmol/L Potassium (3.5-5.1) mmol/L Chloride (98-107) mmol/L Carbon Dioxide (21-32) mmol/L Anion Gap (5-15) mmol/L BUN (7-18) mg/dL Creatinine (0.70-1.30) mg/dL Est Cr Clr Drug Dosing Estimated GFR (MDRD) Glucose (70-99) mg/dL Lactic Acid 2.6 H* (0.4-2.0) mmol/L Calcium (8.5-10.1) mg/dL Corrected Calcium (8.5-10.1) mg/dL Phosphorus (2.6-4.7) mg/dL Magnesium (1.8-2.4) mg/dL Total Bilirubin (0.2-1.0) mg/dL AST (15-37) U/L ALT (16-63) U/L Alkaline Phosphatase (46-116) U/L Troponin I High Sens (<=76) ng/L C-Reactive Protein (<=0.9) mg/dL NT-Pro-B Natriuret Pep (<=125) pg/mL Total Protein (6.4-8.2) g/dL Albumin (3.4-5.0) g/dL Globulin Albumin/Globulin Ratio Ethyl Alcohol (0-3) mg/dL Influenza Type A RNA Negative (NEGATIVE) RSV RNA (INAAT) Negative (NEGATIVE) Influenza Type B RNA Negative (NEGATIVE) SARS-CoV-2 RNA (ZI) Negative (NEGATIVE) 07/14/21 Range/Units 20:22 WBC (4.0-10.0) x10^3/uL RBC (4.5-6.0) x10^6/uL Hgb (14.0-18.0) g/dL Hct (40.0-52.0) % MCV (78.0-93.0) fL MCH (26.0-32.0) pg MCHC (32.0-36.0) g/dL RDW Coeff of Ariana (10.0-15.0) % Plt Count (130-400) x10^3/uL Immature Gran % (Auto) (0.00-0.43) % Neut % (Auto) (50.0-80.0) % Lymph % (Auto) (25.0-50.0) % [place] % (Auto) (2.0-11.0) % Eos % (Auto) (0.0-4.0) % Baso % (Auto) (0.2-1.2) % Neut # (Auto) (1.8-7.7) x10^3/uL Lymph # (Auto) (1.0-4.8) x10^3/uL [place] # (Auto) (0.0-0.8) x10^3/uL Eos # (Auto) (0.0-0.5) x10^3/uL Baso # (Auto) (0.0-0.2) x10^3/uL Immature Gran # (Auto) (0.00-0.07) x10^3/uL PT (9.9-12.5) SEC INR (2.0-3.5) APTT (25.6-32.8) SEC D-Dimer, Quantitative (<=0.58) mg/LFEU POC ABG pH 7.23 L* (7.35-7.45) pH POC ABG pCO2 106 H* (35-48) mmHg POC ABG pO2 73 L (83-108) mmHg POC ABG HCO3 43.8 H (21-28) mmol/L POC ABG Total CO2 44.9 H (22-29) mmol/L POC ABG O2 Sat 89.1 L (94-98) % POC ABG Base Excess 16 H ((-2)-3) mmol/L POC FiO2 28 POC Blood Gas Comment Called critical res Sodium (136-145) mmol/L Potassium (3.5-5.1) mmol/L Chloride (98-107) mmol/L Carbon Dioxide (21-32) mmol/L Anion Gap (5-15) mmol/L BUN (7-18) mg/dL Creatinine (0.70-1.30) mg/dL Est Cr Clr Drug Dosing Estimated GFR (MDRD) Glucose (70-99) mg/dL Lactic Acid (0.4-2.0) mmol/L Calcium (8.5-10.1) mg/dL Corrected Calcium (8.5-10.1) mg/dL Phosphorus (2.6-4.7) mg/dL Magnesium (1.8-2.4) mg/dL Total Bilirubin (0.2-1.0) mg/dL AST (15-37) U/L ALT (16-63) U/L Alkaline Phosphatase (46-116) U/L Troponin I High Sens (<=76) ng/L C-Reactive Protein (<=0.9) mg/dL NT-Pro-B Natriuret Pep (<=125) pg/mL Total Protein (6.4-8.2) g/dL Albumin (3.4-5.0) g/dL Globulin Albumin/Globulin Ratio Ethyl Alcohol (0-3) mg/dL Influenza Type A RNA (NEGATIVE) RSV RNA (INAAT) (NEGATIVE) Influenza Type B RNA (NEGATIVE) SARS-CoV-2 RNA (ZI) (NEGATIVE) Meds: Medications Generic Name Dose Route Start Last Admin Trade Name Freq PRN Reason Stop Dose Admin Azithromycin 500 mg/ Sodium 250 mls @ 250 mls/hr 07/14/21 20:26 07/14/21 20:39 Chloride IV 07/14/21 21:25 250 mls/hr STAT ONE Administration Sodium Chloride 10 ml 07/14/21 18:48 07/14/21 20:20 Sodium Chloride 0.9% 10 Ml Syringe FLUSH 10 ml ASDIRECTED PRN Administration Keep Vein Open Sodium Chloride 10 ml 07/14/21 19:00 Sodium Chloride 0.9% 10 Ml Syringe FLUSH ASDIRECTED PRN Keep Vein Open Discontinued Medications Generic Name Dose Route Start Last Admin Trade Name Freq PRN Reason Stop Dose Admin Albuterol/Ipratropium 3 ml 07/14/21 20:20 07/14/21 20:24 Albuterol/Ipratropium 3.0-0.5 Mg/3 Ml Neb Soln NEB 07/14/21 20:21 3 ml ONETIME ONE Administration Aspirin 324 mg 07/14/21 18:52 07/14/21 18:40 Aspirin 81 Mg Tab.Chew PO 07/14/21 18:53 324 mg ONETIME ONE Administration Ceftriaxone Sodium 2 gm 07/14/21 20:01 07/14/21 20:15 Ceftriaxone 2 Gm Vial IVPUSH 07/14/21 20:02 2 gm STAT ONE Administration Methylprednisolone Sodium Succinate 125 mg 07/14/21 20:00 07/14/21 20:15 Methylprednisolone Sodium Succinate 125 Mg/2 Ml Sdv IV 07/14/21 20:01 125 mg ONETIME ONE Administration - Radiology Interpretation Free Text/Narrative:: Hyperinflation/COPD, no obvious infiltrate, failure pattern. - Re-Assessments/Exams Free Text/Narrative Re-Assessment/Exam: Pt. O2 sat. was in the 75% range after walking into the ER. Lung sounds where wheezy. Pt. placed on O2 per NC at 3L/min and O2 sat increased to 93%. Pt. was given solu medrol 125mg IV and rocephin 2 gm IV. He was given a duo neb. He will also be covered with azithromycin. Departure - Departure Time of Disposition: 21:09 Disposition: DC/Tfer to [facility] 02 Clinical Impression: COPD (chronic obstructive pulmonary disease) Qualifiers: COPD type: unspecified COPD Qualified Code(s): J44.9 - Chronic obstructive pulmonary disease, unspecified - Discharge Information Referrals: Velasquez Gonzalez MD [Primary Care Provider] - Forms: ED Department Discharge, Interfacility Transfer EMTALA Sepsis Event Note (ED) - Focused Exam Vital Signs: Vital Signs Temp Pulse Resp BP Pulse Ox 07/14/21 18:40 36.8 C 102 H 34 H 100/60 70 L - Problem List Review Problem List Initiated/Reviewed/Updated: Yes - My Orders Last 24 Hours: My Active Orders 07/14/21 18:48 Sodium Chloride 0.9% [Saline Flush] 10 ml FLUSH ASDIRECTED PRN Peripheral IV Insertion Adult [OM.PC] Routine 07/14/21 18:49 Blood Culture x2 Reflex Set [OM.PC] Stat 07/14/21 19:00 CULTURE BLOOD [BC] Stat Sodium Chloride 0.9% [Saline Flush] 10 ml FLUSH ASDIRECTED PRN Peripheral IV Insertion Adult [OM.PC] Routine 07/14/21 19:04 CULTURE BLOOD [BC] Stat 07/14/21 19:37 REFLEX LACTIC ACID YES OR NO [CHEM] Routine 07/14/21 20:20 RT Aerosol Therapy [RC] ASDIRECTED 07/14/21 20:26 Azithromycin [Zithromax] 500 mg Sodium Chloride 0.9% [Normal Saline AdvBag] 250 ml IV STAT - Assessment/Plan Last 24 Hours: My Active Orders 07/14/21 18:48 Sodium Chloride 0.9% [Saline Flush] 10 ml FLUSH ASDIRECTED PRN Peripheral IV Insertion Adult [OM.PC] Routine 07/14/21 18:49 Blood Culture x2 Reflex Set [OM.PC] Stat 07/14/21 19:00 CULTURE BLOOD [BC] Stat Sodium Chloride 0.9% [Saline Flush] 10 ml FLUSH ASDIRECTED PRN Peripheral IV Insertion Adult [OM.PC] Routine 07/14/21 19:04 CULTURE BLOOD [BC] Stat 07/14/21 19:37 REFLEX LACTIC ACID YES OR NO [CHEM] Routine 07/14/21 20:20 RT Aerosol Therapy [RC] ASDIRECTED 07/14/21 20:26 Azithromycin [Zithromax] 500 mg Sodium Chloride 0.9% [Normal Saline AdvBag] 250 ml IV STAT Plan: Pt. will be transferred to [facility]. Pt. is acidotic with pH of 7.23 and PCO2 of 106. Pt. refused starting BiPAP. He also indicated that he did not wish to be intubated or receive CPR. Pt. was alert to to time, date and place. Initially, pt. refused ambulance transfer to the [place], stating that he was going to "drive himself". Pt. eventually agreed to be transported via ambulance after discussion was made as to how ill he is. Pt. will be transported via [facility] ground ambulance. Pt. did leave his keys here. We will make arrangements to the car to be secured until his eventual discharge.
[2021-07-14 19:39] LABS: CHLORIDE,CL 100 mmol/L (98-107); SODIUM,NA 144 mmol/L (136-145)
[2021-07-14 19:57] LABS: CORONAVIRUS COVID-19 NAA NEGATIVE (NEGATIVE); RESPIRATORY SYNCYTIAL VIR NAA NEGATIVE (NEGATIVE)
--- NOTE | 2021-07-14 19:58 | CR ---
[id number] RAD/RAD Chest Portable EXAM: RAD Chest Portable INDICATION: CHEST PAIN, SOB COMPARISON: June 01, 2021 DISCUSSION: Cardiomediastinal silhouette is normal in size and contour. No infiltrate, effusion, pneumothorax, or edema. Dependent atelectasis at the left lung base. IMPRESSION: No acute cardiopulmonary abnormality. Sekou Pollock DO 07/14/211956 Thank you for allowing us to participate in the care of your patient.
[2021-07-14] MEDS ORDERED: methylPREDNISolone Sodium Succinate 125 MG/2 ML SDV IV ONE (20:00)
[2021-07-14] MEDS ORDERED: cefTRIAXone 2 GM Vial IVPUSH ONE (20:01)
[2021-07-14] MEDS ORDERED: Albuterol/Ipratropium 3.0-0.5 MG/3 ML Neb Soln NEB ONE (20:20)
[2021-07-14] MEDS ORDERED: Azithromycin 500 MG in Sodium Chloride 0.9% 250 ML IV ONE (20:26)
[2021-07-14 20:27] LABS: PCO2 ARTERIAL,POC 106 mmHg (35-48)
[2021-07-14 23:15] VITALS: BP 128/72; PULSE 93
== END 2021-07-14 21:40 | disposition short-term general hospital (02) ==
LOC: VM.ED 18:38
DX: J44.9 Chronic obstructive pulmonary disease, unspecified (principal); I50.9 Heart failure, unspecified; Z88.8 Allergy status to other drugs, medicaments and biological substances; Z20.822 Contact with and (suspected) exposure to COVID-19
CPT/HCPCS: 0241U; 36415; 36600; 71045; 80053; 80307; 82803; 83605; 83735; 83880; 84100; 84484; 85025; 85379; 85610; 85730; 86140; 87040; 93005; 94640; 96365; 96375; 99285; A9270; J0456; J0696; J2930; J7050; J7620-GY

== ENCOUNTER 2021-07-28 18:08 | Emergency (ER) | payer OTHER ==
[2021-07-28 18:30] VITALS: BP 111/77
[2021-07-28] MEDS ORDERED: Sodium Chloride 0.9% 10 ML Syringe FLUSH PRN (18:31)
--- NOTE | 2021-07-28 18:43 | EDM.PDOC ---
ED HPI GENERAL MEDICAL PROBLEM - General Chief Complaint: Cardiovascular Problem Stated Complaint: SOB Time Seen by Provider: 07/28/21 18:25 Source of Information: Reports: Patient - History of Present Illness INITIAL COMMENTS - FREE TEXT/NARRATIVE: Abe is a 66 y/o male who comes to the ER with complaints of being lightheaded and near syncopal this afternoon. He really hasn't felt well over the last couple weeks and has had intermittent chest pain. Also been more tired with decreased appetite. Dizzy at times. He does report being in the [facility] about 2 weeks ago for CHF exacerbation. He reports at that time his home oxygen was increased to 3 liters/minute. Denies fever, but has been diaphoretic today. - Related Data Allergies Allergy/AdvReac Type Severity Reaction Status Date / Time nicotine Allergy Cough Verified 07/28/21 18:34 Home Meds: Home Meds . [Unable to Verify Home Med List] 06/01/21 [History] Past Medical History Cardiovascular History: Reports: Arrhythmia, Heart Failure, SOB on Exertion Respiratory History: Reports: COPD Musculoskeletal History: Reports: Osteoarthritis Other Musculoskeletal History: wrist surgeries. Neurological History: Reports: Migraines Hematologic History: Reports: Polycythemia - Infectious Disease History Infectious Disease History: Reports: Shingles - Past Surgical History HEENT Surgical History: Reports: Laser Surgery GI Surgical History: Reports: Appendectomy, Hernia Repair/Other Other GI Surgeries/Procedures: Inguinal hernia-repaired 1982 Musculoskeletal Surgical History: Reports: Arthroscopic Knee Social & Family History - Family History Family Medical History: No Pertinent Family History - Caffeine Use Caffeine Use: Reports: Coffee ED ROS GENERAL - Review of Systems Review Of Systems: See Below Constitutional: Reports: Malaise, Weakness, Fatigue, Diaphoresis, Decreased Appetite HEENT: Reports: No Symptoms Respiratory: Reports: Shortness of Breath, Cough Cardiovascular: Reports: Chest Pain, Dyspnea on Exertion, Edema, Lightheadedness GI/Abdominal: Reports: Decreased Appetite : Reports: No Symptoms Musculoskeletal: Reports: No Symptoms Skin: Reports: Diaphoresis Neurological: Reports: Weakness Psychiatric: Reports: No Symptoms Hematologic/Lymphatic: Reports: No Symptoms Immunologic: Reports: No Symptoms ED EXAM, GENERAL - Physical Exam Exam: See Below General Appearance: Alert, WD/WN, No Apparent Distress (Elderly male, on home oxygen sitting on edge of ER cart.) Eye Exam: Bilateral Eye: PERRL Ears: Normal External Exam, Normal Canal, Hearing Grossly Normal Nose: Normal Inspection, Normal Mucosa Throat/Mouth: Normal Inspection, Normal Lips, Normal Voice Head: Atraumatic, Normocephalic Neck: Supple Respiratory/Chest: No Respiratory Distress, Crackles (scatered, diminshed, no dyspnea noted.) Cardiovascular: Normal Peripheral Pulses, Regular Rate, Rhythm, No JVD, No Murmur GI/Abdominal: Normal Bowel Sounds, Soft, Non-Tender, No Distention (Male) Exam: Deferred Rectal (Males) Exam: Deferred, Prostate Nodule Back Exam: Normal Inspection Extremities: Normal Inspection, Normal Range of Motion, Pedal Edema (note 2-3+ b ilateral ankle/foot edema) Neurological: Alert, Oriented, CN II-XII Intact Psychiatric: Normal Affect Skin Exam: Warm, Intact, Normal Color, Other (Tacky) Lymphatic: No Adenopathy #1 Interpretation EKG Date: 07/28/21 Time: 18:36 Rhythm: NSR Rate (Beats/Min): 94 [place]: Normal P-Wave: Present QRS: Normal ST-T: Normal QT: Normal EKG Interpretation Comments: Normal Sinus Rhythm Course - Vital Signs Text/Narrative:: 1824 The patient was seen by the TRANSPORTATION SUPERINTENDENT. Labs, EKG, and CXR ordered. Vitals stable, Orthostatic VS negative. 1944 Labs reviewed. Note WBC=14.9, diff neg; CMP CO2=38, ABGs noted Met Alkalosis with Compensated Respiratory Acidosis. Trop neg, Lactic Acid=1.8, CRP neg, EKG unchanged. Doubt any acute process and suspect near syncope related to CHF and Chronic COPD. VSS in the ER. Will send patient home to rest with same meds. Will have him FU with his PCP at the [facility]. Written instructions were given and he left the ER in stable condition. Last Recorded V/S: Last Vital Signs Temp 37.0 C 07/28/21 18:12 Pulse 109 H 07/28/21 18:12 Resp 20 07/28/21 18:12 BP 111/77 07/28/21 18:12 Pulse Ox 93 L 07/28/21 18:12 Orthostatic Blood Pressure [ 110/70 Standing] Orthostatic Blood Pressure [ 105/67 Sitting] Orthostatic Blood Pressure [ 110/73 Supine] - Orders/Labs/Meds Orders: Active Orders 24 hr Category Date Time Status Chest 2V [CR] Stat Exams 07/28/21 18:31 Ordered CULTURE BLOOD [BC] Stat Lab 07/28/21 18:46 Received CULTURE BLOOD [BC] Stat Lab 07/28/21 18:50 Received Sodium Chloride 0.9% [Saline Flush] Med 07/28/21 18:31 Active 10 ml FLUSH ASDIRECTED PRN Blood Culture x2 Reflex Set [OM.PC] Stat Oth 07/28/21 18:31 Ordered Saline Lock Insert [OM.PC] Stat Oth 07/28/21 18:29 Ordered Medication Orders Sodium Chloride (Sodium Chloride 0.9% 10 Ml Syringe) 10 ml FLUSH ASDIRECTED PRN PRN Reason: Keep Vein Open Labs: Laboratory Tests 07/28/21 07/28/21 07/28/21 Range/Units 18:43 18:46 18:46 WBC 14.9 H (4.0-10.0) x10^3/uL RBC 6.22 H (4.5-6.0) x10^6/uL Hgb 15.6 (14.0-18.0) g/dL Hct 51.1 (40.0-52.0) % MCV 82.2 (78.0-93.0) fL MCH 25.1 L (26.0-32.0) pg MCHC 30.5 L (32.0-36.0) g/dL RDW Coeff of Ariana 18.0 H (10.0-15.0) % Plt Count 330 (130-400) x10^3/uL Immature Gran % (Auto) 0.50 H (0.00-0.43) % Neut % (Auto) 77.3 (50.0-80.0) % Lymph % (Auto) 13.4 L (25.0-50.0) % Sanders % (Auto) 6.6 (2.0-11.0) % Eos % (Auto) 1.7 (0.0-4.0) % Baso % (Auto) 0.5 (0.2-1.2) % Neut # (Auto) 11.5 H (1.8-7.7) x10^3/uL Lymph # (Auto) 2.0 (1.0-4.8) x10^3/uL Sanders # (Auto) 1.0 H (0.0-0.8) x10^3/uL Eos # (Auto) 0.3 (0.0-0.5) x10^3/uL Baso # (Auto) 0.1 (0.0-0.2) x10^3/uL Immature Gran # (Auto) 0.08 H (0.00-0.07) x10^3/uL PT (9.9-12.5) SEC INR (2.0-3.5) APTT (25.6-32.8) SEC POC ABG pH (7.35-7.45) pH POC ABG pCO2 (35-48) mmHg POC ABG pO2 (83-108) mmHg POC ABG HCO3 (21-28) mmol/L POC ABG Total CO2 (22-29) mmol/L POC ABG O2 Sat (94-98) % POC ABG Base Excess ((-2)-3) mmol/L POC FiO2 Sodium 140 (136-145) mmol/L Potassium 3.8 (3.5-5.1) mmol/L Chloride 99 (98-107) mmol/L Carbon Dioxide 38 H (21-32) mmol/L Anion Gap 6.8 (5-15) mmol/L BUN 13 (7-18) mg/dL Creatinine 0.7 (0.70-1.30) mg/dL Est Cr Clr Drug Dosing TNP Estimated GFR (MDRD) > 60 Glucose 128 H (70-99) mg/dL Lactic Acid (0.4-2.0) mmol/L Calcium 9.3 (8.5-10.1) mg/dL Corrected Calcium 9.9 (8.5-10.1) mg/dL Magnesium 2.2 (1.8-2.4) mg/dL Total Bilirubin 0.2 (0.2-1.0) mg/dL AST 18 (15-37) U/L ALT 61 (16-63) U/L Alkaline Phosphatase 61 (46-116) U/L Troponin I High Sens 14 (<=76) ng/L C-Reactive Protein < 0.2 (<=0.9) mg/dL NT-Pro-B Natriuret Pep 178 H (<=125) pg/mL Total Protein 6.8 (6.4-8.2) g/dL Albumin 3.3 L (3.4-5.0) g/dL Globulin 3.5 Albumin/Globulin Ratio 0.94 Procalcitonin (0.1-0.50) ng/mL Urine Color (YELLOW) Urine Appearance (CLEAR) Urine pH (5.0-8.0) Ur Specific [place] Urine Protein (NEGATIVE) mg/dL Urine Glucose (UA) (NEGATIVE) mg/dL Urine Ketones (NEGATIVE) mg/dL Urine Occult Blood (NEGATIVE) Urine Nitrite (NEGATIVE) Urine Bilirubin (NEGATIVE) Urine Urobilinogen (0.2) EU/dL Ur Leukocyte Esterase (NEGATIVE) Influenza Type A RNA Negative (NEGATIVE) RSV RNA (INAAT) Negative (NEGATIVE) Influenza Type B RNA Negative (NEGATIVE) SARS-CoV-2 RNA (ZI) Negative (NEGATIVE) 07/28/21 07/28/21 07/28/21 Range/Units 18:46 18:46 18:46 WBC (4.0-10.0) x10^3/uL RBC (4.5-6.0) x10^6/uL Hgb (14.0-18.0) g/dL Hct (40.0-52.0) % MCV (78.0-93.0) fL MCH (26.0-32.0) pg MCHC (32.0-36.0) g/dL RDW Coeff of Ariana (10.0-15.0) % Plt Count (130-400) x10^3/uL Immature Gran % (Auto) (0.00-0.43) % Neut % (Auto) (50.0-80.0) % Lymph % (Auto) (25.0-50.0) % [place] % (Auto) (2.0-11.0) % Eos % (Auto) (0.0-4.0) % Baso % (Auto) (0.2-1.2) % Neut # (Auto) (1.8-7.7) x10^3/uL Lymph # (Auto) (1.0-4.8) x10^3/uL [place] # (Auto) (0.0-0.8) x10^3/uL Eos # (Auto) (0.0-0.5) x10^3/uL Baso # (Auto) (0.0-0.2) x10^3/uL Immature Gran # (Auto) (0.00-0.07) x10^3/uL PT 10.0 (9.9-12.5) SEC INR 0.9 L (2.0-3.5) APTT 24.1 L (25.6-32.8) SEC POC ABG pH (7.35-7.45) pH POC ABG pCO2 (35-48) mmHg POC ABG pO2 (83-108) mmHg POC ABG HCO3 (21-28) mmol/L POC ABG Total CO2 (22-29) mmol/L POC ABG O2 Sat (94-98) % POC ABG Base Excess ((-2)-3) mmol/L POC FiO2 Sodium (136-145) mmol/L Potassium (3.5-5.1) mmol/L Chloride (98-107) mmol/L Carbon Dioxide (21-32) mmol/L Anion Gap (5-15) mmol/L BUN (7-18) mg/dL Creatinine (0.70-1.30) mg/dL Est Cr Clr Drug Dosing Estimated GFR (MDRD) Glucose (70-99) mg/dL Lactic Acid 1.8 (0.4-2.0) mmol/L Calcium (8.5-10.1) mg/dL Corrected Calcium (8.5-10.1) mg/dL Magnesium (1.8-2.4) mg/dL Total Bilirubin (0.2-1.0) mg/dL AST (15-37) U/L ALT (16-63) U/L Alkaline Phosphatase (46-116) U/L Troponin I High Sens (<=76) ng/L C-Reactive Protein (<=0.9) mg/dL NT-Pro-B Natriuret Pep (<=125) pg/mL Total Protein (6.4-8.2) g/dL Albumin (3.4-5.0) g/dL Globulin Albumin/Globulin Ratio Procalcitonin <0.05 L (0.1-0.50) ng/mL Urine Color (YELLOW) Urine Appearance (CLEAR) Urine pH (5.0-8.0) Ur Specific [place] Urine Protein (NEGATIVE) mg/dL Urine Glucose (UA) (NEGATIVE) mg/dL Urine Ketones (NEGATIVE) mg/dL Urine Occult Blood (NEGATIVE) Urine Nitrite (NEGATIVE) Urine Bilirubin (NEGATIVE) Urine Urobilinogen (0.2) EU/dL Ur Leukocyte Esterase (NEGATIVE) Influenza Type A RNA (NEGATIVE) RSV RNA (INAAT) (NEGATIVE) Influenza Type B RNA (NEGATIVE) SARS-CoV-2 RNA (ZI) (NEGATIVE) 07/28/21 07/28/21 Range/Units 19:04 19:37 WBC (4.0-10.0) x10^3/uL RBC (4.5-6.0) x10^6/uL Hgb (14.0-18.0) g/dL Hct (40.0-52.0) % MCV (78.0-93.0) fL MCH (26.0-32.0) pg MCHC (32.0-36.0) g/dL RDW Coeff of Ariana (10.0-15.0) % Plt Count (130-400) x10^3/uL Immature Gran % (Auto) (0.00-0.43) % Neut % (Auto) (50.0-80.0) % Lymph % (Auto) (25.0-50.0) % [place] % (Auto) (2.0-11.0) % Eos % (Auto) (0.0-4.0) % Baso % (Auto) (0.2-1.2) % Neut # (Auto) (1.8-7.7) x10^3/uL Lymph # (Auto) (1.0-4.8) x10^3/uL [place] # (Auto) (0.0-0.8) x10^3/uL Eos # (Auto) (0.0-0.5) x10^3/uL Baso # (Auto) (0.0-0.2) x10^3/uL Immature Gran # (Auto) (0.00-0.07) x10^3/uL PT (9.9-12.5) SEC INR (2.0-3.5) APTT (25.6-32.8) SEC POC ABG pH 7.44 (7.35-7.45) pH POC ABG pCO2 52 H (35-48) mmHg POC ABG pO2 68 L (83-108) mmHg POC ABG HCO3 35.1 H (21-28) mmol/L POC ABG Total CO2 35.2 H (22-29) mmol/L POC ABG O2 Sat 93.4 L (94-98) % POC ABG Base Excess 11 H ((-2)-3) mmol/L POC FiO2 32 Sodium (136-145) mmol/L Potassium (3.5-5.1) mmol/L Chloride (98-107) mmol/L Carbon Dioxide (21-32) mmol/L Anion Gap (5-15) mmol/L BUN (7-18) mg/dL Creatinine (0.70-1.30) mg/dL Est Cr Clr Drug Dosing Estimated GFR (MDRD) Glucose (70-99) mg/dL Lactic Acid (0.4-2.0) mmol/L Calcium (8.5-10.1) mg/dL Corrected Calcium (8.5-10.1) mg/dL Magnesium (1.8-2.4) mg/dL Total Bilirubin (0.2-1.0) mg/dL AST (15-37) U/L ALT (16-63) U/L Alkaline Phosphatase (46-116) U/L Troponin I High Sens (<=76) ng/L C-Reactive Protein (<=0.9) mg/dL NT-Pro-B Natriuret Pep (<=125) pg/mL Total Protein (6.4-8.2) g/dL Albumin (3.4-5.0) g/dL Globulin Albumin/Globulin Ratio Procalcitonin (0.1-0.50) ng/mL Urine Color Yellow (YELLOW) Urine Appearance Clear (CLEAR) Urine pH 7.5 (5.0-8.0) Ur Specific [place] 1.020 Urine Protein Negative (NEGATIVE) mg/dL Urine Glucose (UA) Negative (NEGATIVE) mg/dL Urine Ketones Negative (NEGATIVE) mg/dL Urine Occult Blood Negative (NEGATIVE) Urine Nitrite Negative (NEGATIVE) Urine Bilirubin Negative (NEGATIVE) Urine Urobilinogen 0.2 (0.2) EU/dL Ur Leukocyte Esterase Negative (NEGATIVE) Influenza Type A RNA (NEGATIVE) RSV RNA (INAAT) (NEGATIVE) Influenza Type B RNA (NEGATIVE) SARS-CoV-2 RNA (ZI) (NEGATIVE) Meds: Medications Generic Name Dose Route Start Last Admin Trade Name Teodora PRN Reason Stop Dose Admin Sodium Chloride 10 ml 07/28/21 18:31 Sodium Chloride 0.9% 10 Ml Syringe FLUSH ASDIRECTED PRN Keep Vein Open Departure - Departure Time of Disposition: 19:52 Disposition: Home, Self-Care 01 Clinical Impression: Near syncope, Oxygen dependent CHF (congestive heart failure) Qualifiers: Heart failure type: unspecified Heart failure chronicity: unspecified Qualified Code(s): I50.9 - Heart failure, unspecified COPD (chronic obstructive pulmonary disease) Qualifiers: COPD type: unspecified COPD Qualified Code(s): J44.9 - Chronic obstructive pulmonary disease, unspecified Instructions: Heart Failure, Self-Care, [id number], Chronic Obstructive Pulmonary Disease, [id number], Heart Failure Medicines, Syncope, [id number] Referrals: Velasquez Gonzalez MD [Primary Care Provider] - Forms: ED Department Discharge Additional Instructions: -Continue current meds -Keep your follow up appt at the [facility] on Aug 07 -Make sure you are staying hydrated with oral fluids and rest as needed -Return to the ER for any further concerns Sepsis Event Note (ED) - Focused Exam Vital Signs: Vital Signs Temp Pulse Resp BP Pulse Ox 07/28/21 18:12 37.0 C 109 H 20 111/77 93 L - Problem List & Annotations (1) Chest pain SNOMED Code(s): 08646671 Code(s): R07.9 - CHEST PAIN, UNSPECIFIED Status: Acute Annotatio n/Comment:: Troponin negative. EKG negative. Has had intermittent chest for >2 weeks. Qualifiers: Chest pain type: unspecified Qualified Code(s): R07.9 - Chest pain, unspecified (2) COPD (chronic obstructive pulmonary disease) SNOMED Code(s): 29812382 Code(s): J44.9 - CHRONIC OBSTRUCTIVE PULMONARY DISEASE, UNSPECIFIED Status: Acute Annotation/Comment:: Continue home oxygen @ 3liters/minutes as prescrib ed by [facility] PCP. Qualifiers: COPD type: unspecified COPD Qualified Code(s): J44.9 - Chronic obstructive pulmonary disease, unspecified (3) CHF (congestive heart failure) SNOMED Code(s): 96453117 Code(s): I50.9 - HEART FAILURE, UNSPECIFIED Status: Acute Annotation/Comment:: RXD=[id number], Continue Furosemide. Qualifiers: Heart failure type: unspecified Heart failure chronicity: unspecified Qualified Code(s): I50.9 - Heart failure, unspecified (4) Near syncope SNOMED Code(s): 323167188 Code(s): R55 - SYNCOPE AND COLLAPSE Status: Acute Annotation/Comment:: Labs neg, EKG neg. VSS. (5) Oxygen dependent SNOMED Code(s): 388245769213 Code(s): Z99.81 - DEPENDENCE ON SUPPLEMENTAL OXYGEN Status: Acute - Problem List Review Problem List Initiated/Reviewed/Updated: Yes - My Orders Last 24 Hours: My Active Orders 07/28/21 18:29 Saline Lock Insert [OM.PC] Stat 07/28/21 18:31 Chest 2V [CR] Stat Sodium Chloride 0.9% [Saline Flush] 10 ml FLUSH ASDIRECTED PRN Blood Culture x2 Reflex Set [OM.PC] Stat 07/28/21 18:46 CULTURE BLOOD [BC] Stat 07/28/21 18:50 CULTURE BLOOD [BC] Stat - Assessment/Plan Last 24 Hours: My Active Orders 07/28/21 18:29 Saline Lock Insert [OM.PC] Stat 07/28/21 18:31 Chest 2V [CR] Stat Sodium Chloride 0.9% [Saline Flush] 10 ml FLUSH ASDIRECTED PRN Blood Culture x2 Reflex Set [OM.PC] Stat 07/28/21 18:46 CULTURE BLOOD [BC] Stat 07/28/21 18:50 CULTURE BLOOD [BC] Stat Plan: See above.
[2021-07-28 19:09] LABS: PCO2 ARTERIAL,POC 52 mmHg (35-48)
[2021-07-28 19:19] LABS: PTT,PARTIAL THROMBOPLSTIN TIME 24.1 SEC (25.6-32.8)
[2021-07-28 19:31] LABS: CHLORIDE,CL 99 mmol/L (98-107); SODIUM,NA 140 mmol/L (136-145)
[2021-07-28 19:32] LABS: ANION GAP 6.8 mmol/L (5-15)
[2021-07-28 19:40] LABS: CORONAVIRUS COVID-19 NAA NEGATIVE (NEGATIVE); RESPIRATORY SYNCYTIAL VIR NAA NEGATIVE (NEGATIVE)
--- NOTE | 2021-07-28 20:29 | CR ---
[id number] RAD/RAD Chest PA And Lateral EXAM: RAD Chest PA And Lateral CLINICAL DATA: CHEST PAIN COMPARISON: CORRELATION IS MADE WITH THE EXAM OF JULY 14, 2021 FINDINGS: There is an abnormal interstitial pattern The cardiomediastinal contour is prominent but stable IMPRESSION: QUESTION OF EARLY EDEMA Urban Alvarado MD 07/28/212027 Thank you for allowing us to participate in the care of your patient.
[2021-07-28 21:40] VITALS: PULSE 88
== END 2021-07-28 20:23 | disposition home or self-care (01) ==
LOC: VM.ED 18:08
DX: I50.9 Heart failure, unspecified (principal); J44.9 Chronic obstructive pulmonary disease, unspecified; R55 Syncope and collapse; Z99.81 Dependence on supplemental oxygen; Z91.048 Other nonmedicinal substance allergy status; Z20.822 Contact with and (suspected) exposure to COVID-19
CPT/HCPCS: 0241U; 36415; 36600; 71046; 80053; 81003; 82803; 83605; 83735; 83880; 84145; 84484; 85025; 85610; 85730; 86140; 87040; 93005; 93010; 99284; 99285-25

== ENCOUNTER 2021-10-16 21:52 | Emergency (ER) | payer OTHER ==
[2021-10-16 22:46] VITALS: BP 118/53; PULSE 85
[2021-10-16 23:20] LABS: ANION GAP 7.9 mmol/L (5-15); CHLORIDE,CL 97 mmol/L (98-107); SODIUM,NA 140 mmol/L (136-145)
== END 2021-10-16 23:35 | disposition home or self-care (01) ==
LOC: VM.ED 21:52
DX: R60.0 Localized edema (principal); J44.9 Chronic obstructive pulmonary disease, unspecified; Z88.8 Allergy status to other drugs, medicaments and biological substances
CPT/HCPCS: 36415; 80053; 83880; 85025; 99284

== ENCOUNTER 2022-04-26 19:30 | Emergency (ER) | payer OTHER ==
[2022-04-26] MEDS: Morphine 4 MG/ML Syringe IVPUSH ONE (20:08)
[2022-04-26 20:37] LABS: PTT,PARTIAL THROMBOPLSTIN TIME 29.2 SEC (20.5-30.9)
[2022-04-26 20:45] LABS: CHLORIDE,CL 91 mmol/L (98-107); ESTIMATED GFR 98 mL/min (>=60); SODIUM,NA 137 mmol/L (136-145)
[2022-04-26 21:00] LABS: CORONAVIRUS COVID-19 NAA NEGATIVE (NEGATIVE); RESPIRATORY SYNCYTIAL VIR NAA NEGATIVE (NEGATIVE)
[2022-04-26 21:02] VITALS: BP 111/65; PULSE 75
[2022-04-26 21:04] LABS: BARBITURATE SCREEN,URINE NEGATIVE (NEGATIVE); BENZODIAZEPINES SCREEN,URINE NEGATIVE (NEGATIVE); METHAMPHETAMINE SCREEN, URINE NEGATIVE (NEGATIVE); THC SCREEN,URINE 50 NG/ML NEGATIVE (NEGATIVE)
[2022-04-26 21:05] LABS: BUPRENORPHINE SCREEN,URINE NEGATIVE (NEGATIVE)
[2022-04-26] MEDS: cefTRIAXone 2 GM Vial IVPUSH ONE (21:38)
[2022-04-26 21:51] LABS: PCO2 ARTERIAL,POC 54 mmHg (35-48)
[2022-04-26] MEDS: HYDROmorphone 0.5 MG/0.5 ML Syringe IVPUSH ONE ×2 (21:51→22:51)
[2022-04-26] MEDS: Iopamidol 755 Mg/ML 100 ML Bottle IVPUSH ONE (22:34)
[2022-04-26] MEDS: Azithromycin 500 MG in Sodium Chloride 0.9% 250 ML IV ONE (22:41)
[2022-04-26] MEDS: methylPREDNISolone Sodium Succinate 125 MG/2 ML SDV IV ONE (22:41)
[2022-04-26] MEDS: Sodium Chloride 0.9% 1,000 ML IV SCH (22:42)
[2022-04-26] MEDS: Sodium Chloride 0.9% 10 ML Syringe FLUSH PRN (22:42)
[2022-04-26] MEDS: Albuterol/Ipratropium 3.0-0.5 MG/3 ML Neb Soln NEB ONE (23:56)
== END 2022-04-27 00:15 | disposition short-term general hospital (02) ==
LOC: VM.ED 19:30
DX: R55 Syncope and collapse (principal); J44.1 Chronic obstructive pulmonary disease with (acute) exacerbation; Z91.048 Other nonmedicinal substance allergy status; Z90.49 Acquired absence of other specified parts of digestive tract; Z20.822 Contact with and (suspected) exposure to COVID-19; W19.XXXA Unspecified fall, initial encounter
CPT/HCPCS: 0241U; 36415; 36600; 71045; 72100; 80053; 80305; 80307; 81003; 82803; 83605; 83735; 83880; 84100; 84484; 85025; 85379; 85610; 85730; 86140; 87040; 93005; 93010; 96365; 96375; 96376; 99284; 99285; J0456; J0696; J1170; J2270; J2930; J3490; J7030; J7050; Q9967; J7620-GY

== ENCOUNTER 2024-04-17 15:55 | Emergency (ER) | payer OTHER ==
[2024-04-17] MEDS ORDERED: Sodium Chloride 0.9% 10 ML Syringe FLUSH PRN (16:09)
[2024-04-17 16:27] LABS: BASOPHILS ABSOLUTE AUTO 0.1 x10^3/uL (0.0-0.2); BASOPHILS PERCENT AUTO 0.7 % (0.2-1.2); EOSINOPHILS ABSOLUTE AUTO 0.1 x10^3/uL (0.0-0.5); EOSINOPHILS PERCENT AUTO 0.9 % (0.0-4.0); HEMATOCRIT 53.9 % (40.0-52.0); HEMOGLOBIN 16.2 g/dL (14.0-18.0); IMMATURE GRAN ABSOLUTE AUTO 0.01 x10^3/uL (0.00-0.07); LYMPHOCYTES ABSOLUTE AUTO 1.3 x10^3/uL (1.0-4.8); LYMPHOCYTES PERCENT AUTO 14.9 % (25.0-50.0); MEAN CORPUSCULAR HEMOGLOBIN 27.4 pg (26.0-32.0); MEAN CORPUSCULAR HGB CONC 30.1 g/dL (32.0-36.0); MEAN CORPUSCULAR VOLUME 91.2 fL (78.0-93.0); MONOCYTES ABSOLUTE AUTO 0.9 x10^3/uL (0.0-0.8); MONOCYTES PERCENT AUTO 10.8 % (2.0-11.0); NEUTROPHILS ABSOLUTE AUTO 6.3 x10^3/uL (1.8-7.7); NEUTROPHILS PERCENT AUTO 72.6 % (50.0-80.0); PLATELET COUNT,PLT 269 x10^3/uL (130-400); RED BLOOD CELL COUNT 5.91 x10^6/uL (4.5-6.0); WHITE BLOOD CELL COUNT,WBC 8.6 x10^3/uL (4.0-10.0)
[2024-04-17 16:52] LABS: A/G RATIO 0.82; ALBUMIN 3.2 g/dL (3.4-5.0); ALKALINE PHOSPHATASE 70 U/L (46-116); BILIRUBIN TOTAL 0.8 mg/dL (0.2-1.0); BLOOD UREA NITROGEN,BUN 8 mg/dL (7-18); CALCIUM 8.8 mg/dL (8.5-10.1); CARBON DIOXIDE,CO2 44 mmol/L (21-32); CHLORIDE,CL 97 mmol/L (98-107); CREATININE 0.7 mg/dL (0.70-1.30); GLUCOSE RANDOM 149 mg/dL (70-99); PRO B-TYPE NATRIUR PEPT,BNPPRO 364 pg/mL (<=125); PROTEIN TOTAL,TP 7.1 g/dL (6.4-8.2); SODIUM,NA 140 mmol/L (136-145)
[2024-04-17 17:10] VITALS: BP 116/74; PULSE 96
[2024-04-17 17:10] LABS: ESTIMATED GFR 101 mL/min (>=60)
[2024-04-17 17:15] LABS: CORONAVIRUS COVID-19 NAA NEGATIVE (NEGATIVE)
[2024-04-17 17:15] LABS: ASPARTATE AMNIOTRANSFERASE,AST 10 U/L (15-37)
[2024-04-17 17:16] LABS: INFLUENZA A NAA NEGATIVE (NEGATIVE); INFLUENZA B NAA NEGATIVE (NEGATIVE)
[2024-04-17 17:19] LABS: ALANINE AMINOTRANSFERASE,ALT < 6 U/L (16-63)
[2024-04-17] MEDS ORDERED: Furosemide 20 MG/2 ML VIAL IV ONE (17:22)
== END 2024-04-17 18:05 | disposition home or self-care (01) ==
LOC: VM.ED 15:55
DX: F10.10 Alcohol abuse, uncomplicated (principal); I50.9 Heart failure, unspecified; E72.20 Disorder of urea cycle metabolism, unspecified; J44.9 Chronic obstructive pulmonary disease, unspecified; Z90.49 Acquired absence of other specified parts of digestive tract; Z88.5 Allergy status to narcotic agent
CPT/HCPCS: 0240U; 70450; 71045; 80053; 80307; 82140; 83880; 84484; 85025; 93005; 93010; 99284; 99285